=== PATIENT | male | born 1990 | race African-American/Black ===

== ENCOUNTER 2025-03-08 12:56 | Emergency (ER) | payer OTHER ==
[~2025-03-08] VITALS: Ht 172.7 cm; Wt 83.6 kg
[2025-03-08 13:04] VITALS: BP 104/61; PULSE 92; RESP 16; TEMP 98.3; O2SAT 98
[2025-03-08] MEDS ORDERED: BUPR1TAB45 SL (13:11)
[2025-03-08] MEDS: BACITRACIN 0.9 GM PACKET OINTMENT TP ONE (15:32)
== END 2025-03-08 15:40 ==
LOC: EMS 12:56
DX: S00.03XA Contusion of scalp, initial encounter (principal); S00.83XA Contusion of other part of head, initial encounter; S10.93XA Contusion of unspecified part of neck, initial encounter; S20.212A Contusion of left front wall of thorax, initial encounter; S00.01XA Abrasion of scalp, initial encounter; F17.210 Nicotine dependence, cigarettes, uncomplicated; F15.90 Other stimulant use, unspecified, uncomplicated; Z79.899 Other long term (current) drug therapy; Y08.89XA Assault by other specified means, initial encounter; Y93.89 Activity, other specified; Y92.89 Other specified places as the place of occurrence of the external cause; Y99.8 Other external cause status
CPT/HCPCS: 70450; 71045; 99284